=== PATIENT | female | born 1975 | race African-American/Black ===

== ENCOUNTER 2023-01-03 15:00 | Emergency (ER) | payer MEDICAID ==
[~2023-01-03] VITALS: Ht 162.6 cm; Wt 82.0 kg
[2023-01-03 15:07] VITALS: BP 127/70; PULSE 70; RESP 24; TEMP 97.4; O2SAT 100
[2023-01-03] MEDS ORDERED: LEVETIRACETAM 500MG PREMIX 100 ML IV NR (16:00)
[2023-01-03] MEDS ORDERED: SODIUM CHLORIDE 0.9% 1,000 ML IV ONE (16:00)
[2023-01-03 17:51] LABS: BASOPHILS % 0.6 % (0.0-2.0); EOSINOPHILS % 0.2 % (0.0-5.0); HEMATOCRIT. 27.5 % (36.0-48.0); HEMOGLOBIN. 8.1 g/dL (12.0-16.0); LYMPHOCYTES % 27.4 % (20.0-50.0); MEAN CORPUSCULAR HEMOGLOBIN 19.9 pg (28.0-32.0); MEAN CORPUSCULAR HGB CONC 29.5 g/dL (31.0-37.0); MEAN CORPUSCULAR VOLUME 67.6 fL (81.0-99.0); MEAN PLATELET VOLUME 7.9 fl (7.4-10.4); MONOCYTES % 7.7 % (2.0-8.0); NEUTROPHILS % 64.1 % (40.0-76.0); PLATELET 312 x1000/uL (130-400); RED BLOOD CELL COUNT 4.08 mill/uL (4.2-5.4); RED CELL DISTRIBUTION WIDTH 18.4 % (11.6-14.6); WHITE BLOOD COUNT 5.5 x1000/uL (4.5-11.0)
[2023-01-03 17:52] LABS: ADD RBC MORPHOLOGY YES; DIFFERENTIAL COMMENT 1
[2023-01-03 18:00] LABS: CHLORIDE 110 mEq/L (98-107); INDEX HEMOLYSI 1 (1-3); INDEX ICTERIC 1 (1-4); INDEX LIPEMIC 1 (1-3); SODIUM 137 mEq/L (136-145)
[2023-01-03 18:10] LABS: ALANINE AMINOTRANSFERASE 54 IU/L (13-61); ALBUMIN 3.7 g/dL (3.4-5.0); ASPARTATE AMINOTRANSFERASE 41 IU/L (15-37); BILIRUBIN TOTAL 0.3 mg/dL (0.1-1.0); CALCIUM 8.8 mg/dL (8.5-10.1); CARBON DIOXIDE 20 mEq/L (21-32); CREATININE 0.5 mg/dL (0.6-1.3); GLUCOSE 101 mg/dL (70-105); PROTEIN TOTAL 7.5 g/dL (6.0-8.3); UREA NITROGEN BLOOD 12 mg/dL (7-21)
[2023-01-03 18:43] LABS: ANISOCYTOSIS 1+; HYPOCHROMASIA 2+; MICROCYTOSIS 3+; PLATELET ESTIMATE NORMAL
[2023-01-03 18:46] LABS: CARBAMAZEPINE < 0.5 ug/mL (4-12); PHENYTOIN < 0.4 ug/mL (10-20); VALPROIC ACID < 3.0 ug/mL (50-100)
[2023-01-03] MEDS ORDERED: KETOROLAC 60MG/2ML VIAL IM ONE (20:00)
[2023-01-03] MEDS ORDERED: LEVE1000 MT (21:32)
[2023-01-03] MEDS ORDERED: IBUP-2030 MT ×3 (21:32→21:33)
== END 2023-01-03 17:03 | disposition home or self-care (01) ==
LOC: ER 16:29
DX: G40.909 Epilepsy, unspecified, not intractable, without status epilepticus (principal); I10 Essential (primary) hypertension
CPT/HCPCS: 80053; 80156; 80185; 80165; 85025; 36415; 71045; 96365; 96372; 99284; J1953; J1885; Z7610 ×2